=== PATIENT | male | born 1995 | race Caucasian/White ===

== ENCOUNTER 2016-09-09 19:18 | Emergency (ER) | payer OTHER ==
[2016-09-09 19:33] VITALS: BP 147/79; PULSE 79; RESP 18; TEMP 98.4; O2SAT 97
--- NOTE | 2016-09-09 19:42 | UCPHY ---
H & P Time Seen by Provider: 09/09/16 19:41 Patient Type: New HPI/ROS: Chief complaint. Diarrhea HPI. 21-year-old male with diarrhea for 1 week. He and his family were in [place] for the vacation and all of the family members developed diarrhea. Other family members symptoms have resolved however his has continued. He has now been back from [place] for 4 days. He has diffuse abdominal cramping. Diarrhea 6-8 episodes per day. No vomiting. No blood in stool. No fever. He has been drinking Gatorade to stay hydrated and help with electrolytes ROS Constitutional. no fever/chills, no weakness Eyes. no problems with vision ENT. no sore throat, no nasal drainage Cardiovascular. no chest pain Respiratory. no shortness of breath, no cough Abdominal. Crampy abdominal pain and diarrhea . no problems urinating MS. no calf pain/swelling, no neck/back pain, no joint pain Skin. no rash Lymph. no swollen glands Neuro. no headache, no dizziness, no difficulty walking or with speech Past Medical/Surgical History: Healthy Social History: Single, nonsmoker, no alcohol Smoking Status: Never smoked Physical Exam: General Appearance: Alert pleasant well-developed male mild distress vital signs stable Eyes: Pupils equal and round no pallor or injection. ENT, Mouth: Mucous membranes are moist. Respiratory: There are no retractions, lungs are clear to auscultation. Cardiovascular: Regular rate and rhythm. Gastrointestinal: Abdomen is soft and nontender, no masses, bowel sounds normal. Neurological: Awake and alert, sensory and motor exams grossly normal. Skin: Warm and dry, no rashes. Musculoskeletal: Neck is supple nontender. Extremities symmetrical, full range of motion. Psychiatric: Patient is oriented X 3, there is no agitation. Constitutional: Initial Vital Signs Temperature (C) 36.9 C 09/09/16 19:29 Heart Rate 79 09/09/16 19:29 Respiratory Rate 18 09/09/16 19:29 Blood Pressure 147/79 H 09/09/16 19:29 O2 Sat (%) 97 09/09/16 19:29 O2 Delivery Mode Room Air Allergies/Adverse Reactions: No Known Allergies Allergy (Verified 09/09/16 19:29) Home Medications: Medication Instructions Recorded NO HOME MEDICATIONS 08/05/11 Ciprofloxacin [Cipro] 500 mg PO BID #4 tab 09/09/16 Medical Decision Making ED Course/Re-evaluation: The patient remains stable He and I discussed treatment plan including criteria for return and importance of follow-up and further evaluation. He expresses understanding and agreement Differential Diagnosis: This is likely traveler's diarrhea. I considered distant [place], dehydration, electrolyte abnormality Departure - Departure Disposition: Home, Routine, Self-Care Clinical Impression: Diarrhea Qualifiers: Diarrhea type: presumed infectious Qualifier Code: (A09) Infectious gastroenteritis and colitis, unspecified Condition: Good Instructions: Traveler's Diarrhea (ED), Loperamide (By mouth) Additional Instructions: Drink plenty of fluids and stay hydrated. Loperamide (Imodium) as needed to help control diarrhea. Cipro is the antibiotic we are prescribing. Use 1 pill twice daily for 3 days. Return for fever, blood in stool, worsening abdominal pain Recheck in 2 days if not improving Prescriptions: Ciprofloxacin [Cipro] 500 mg PO BID #4 tab - PQRS PQRS Measurement: 134: Depression screening and followup, PRIME MD-PHQ2 (12 years and older) Over the last 2 weeks, how often have you been bothered by any of the following problems? 1. Feeling down, depressed, or hopeless? 2. Little interest or pleasure in doing things? Patient answered no to both 1 and 2 130: Documentation of medications. Reviewed all patient medications, doses, route and frequency. 226: Do you smoke? No.
[2016-09-09] MEDS ORDERED: CIPROFLOXACIN 500MG PREPACK#2 BTL TAKEHOME ONE (19:51)
== END 2016-09-09 20:04 | disposition home or self-care (01) ==
LOC: CED 19:18
DX: A09 Infectious gastroenteritis and colitis, unspecified (principal)
CPT/HCPCS: 99204-PO; G0463-PO